=== PATIENT | female | born 1980 | race Caucasian/White ===

== ENCOUNTER 2019-06-23 06:21 | Emergency (ER) | payer BC, OTHER ==
[~2019-06-23] VITALS: Ht 154.9 cm; Wt 77.1 kg
[~2019-06-23 06:21] MED LIST: MACROBID 100 M100 M1 PO; PRENATAL
[2019-06-23 07:00] LABS: URINE BILIRUBIN NEGATIVE (Negative); URINE BLOOD 2+ (Negative); URINE CLARITY CLEAR; URINE COLOR YELLOW; URINE GLUCOSE-RANDOM* NEGATIVE (Negative); URINE KETONES NEGATIVE (Negative); URINE NITRITE-REFLEX NEGATIVE (Negative); URINE PROTEIN (DIPSTICK) NEGATIVE (Negative); URINE UROBILINOGEN 0.2 E.U./dl (0.2-1.0)
[2019-06-23 07:06] LABS: URINE LEUKOCYTES-REFLEX 1+ (Negative)
[2019-06-23 07:20] LABS: ABSOLUTE NEUTROPHILS 8.9 thou/uL (1.4-8.2); BASOPHILS 0.7 % (0.0-2.0); EOSINOPHILS 0.9 % (0.0-3.0); HEMOGLOBIN 15.3 gm/dL (12.0-15.0); LYMPHOCYTES 13.8 % (24.0-44.0); MCH 28.2 pg (26.0-34.0); MCHC 33.9 g/dL (28.0-37.0); MCV 83.1 fL (80.0-100.0); MONOCYTES 5.2 % (1.0-8.0); POLYS 79.4 % (36.0-66.0); RBC 5.42 mil/uL (4.20-5.00); RDW 13.2 % (10.5-14.5); WBC 11.2 thou/uL (4.0-11.0)
[2019-06-23 07:29] LABS: CALCIUM 11.2 mg/dL (8.5-10.1); CREATININE 0.6 mg/dL (0.6-1.0); POTASSIUM 3.7 mmol/L (3.5-5.1)
[2019-06-23 07:30] LABS: CASTS None Seen /LPF (None Seen); CRYSTALS None Seen /LPF (None Seen); SQUAMOUS 4-10 Moderate /LPF (0-3); URINE RBC 3-10 Few /HPF (0-2); URINE WBC-REFLEX 0-5 Rare /HPF (0-5)
[2019-06-23 07:31] LABS: BACTERIA-REFLEX 1-9 Few /HPF (None Seen)
[2019-06-23 07:35] LABS: ALBUMIN 4.1 g/dL (3.4-5.0); TOTAL BILIRUBIN 0.7 mg/dL (<0.1-1.0); TOTAL PROTEIN 7.6 g/dL (6.4-8.2)
[2019-06-23 07:51] LABS: PLATELET COUNT 269 thou/uL (150-400)
[2019-06-23] MEDS ORDERED: ZOFRAN ODT4 MG PO (09:02)
[2019-06-23] MEDS ORDERED: HYDROCODON-ACE1 EAC7 PO (09:02)
[2019-06-23 09:17] VITALS: BP 129/88
== END 2019-06-23 09:17 | disposition home or self-care (01) ==
LOC: ER 06:21
PROVIDERS: Emergency Medicine
DX: N20.0 Calculus of kidney (principal); R10.32 Left lower quadrant pain; R30.0 Dysuria